=== PATIENT | male | born 1960 | race Caucasian/White ===

== ENCOUNTER 2019-01-06 15:19 | Emergency (ER) | payer MEDICAID ==
[~2019-01-06] VITALS: Ht 203.2 cm; Wt 104.5 kg
[2019-01-06 15:40] VITALS: BP 114/76
[2019-01-06 16:17] LABS: BASOPHILS # (AUTO) 0.1 X10'3 (0-0.2); BASOPHILS % (AUTO) 1.1 % (0-1); EOSINOPHILS # (AUTO) 0.1 X10'3 (0-0.9); EOSINOPHILS % (AUTO) 0.9 % (0-6); HEMATOCRIT 47.5 % (42.0-52.0); HEMOGLOBIN 16.6 g/dl (14.0-17.9); LYMPHOCYTES # (AUTO) 1.6 X10'3 (1.1-4.8); LYMPHOCYTES % (AUTO) 20.1 % (21-51); MEAN CORPUSCULAR HEMOGLOBIN 34.8 PG (27.0-31.0); MEAN CORPUSCULAR HGB CONC 34.9 g/dL (33.0-36.5); MEAN CORPUSCULAR VOLUME 99.5 FL (78-98); MEAN PLATELET VOLUME 8.5 FL (7.4-10.4); MONOCYTES # (AUTO) 0.8 X10'3 (0-0.9); MONOCYTES % (AUTO) 9.5 % (2-12); NEUTROPHILS # (AUTO) 5.6 X10'3 (1.8-7.7); NEUTROPHILS % (AUTO) 68.4 % (42-75); PLATELET COUNT 255 X10'3 (140-440); RED BLOOD COUNT 4.78 X10'6 (4.70-6.10); RED CELL DISTRIBUTION WIDTH 12.9 % (11.5-14.5); WHITE BLOOD COUNT 8.2 X10'3 (4.5-11.0)
[2019-01-06 16:27] LABS: ALANINE AMINOTRANSFERASE 122 U/L (12-78); ALBUMIN 4.3 G/DL (3.4-5.0); ALKALINE PHOSPHATASE 72 IU/L (46-116); ANION GAP 7 (8-16); ASPARTATE AMINO TRANSFERASE 61 U/L (10-37); BILIRUBIN,TOTAL 3.7 MG/DL (0.1-1.0); BLOOD UREA NITROGEN 26 MG/DL (7-18); BUN/CREATININE RATIO 15.2 (5.4-32.0); CALCIUM 9.9 MG/DL (8.5-10.1); CHLORIDE 105 MMOL/L (99-107); CREATININE 1.71 MG/DL (0.60-1.10); GLUCOSE 82 MG/DL (70-104); POTASSIUM 3.8 MMOL/L (3.5-5.1); SODIUM 144 MMOL/L (135-145); TOTAL CARBON DIOXIDE 31.7 MMOL/L (24-32); eGFR 41 ML/MIN
[2019-01-06] MEDS ORDERED: PERM60CR4 TOP (17:32)
[2019-01-06] MEDS ORDERED: MECL12.584 PO (17:32)
[2019-01-06] MEDS ORDERED: METH4TAB3 PO (17:32)
[2019-01-06 18:12] LABS: ALBUMIN/GLOBULIN RATIO 1.2 (1.1-1.5); ETHANOL < 0.010 GM/DL (0.0-0.010); TOTAL PROTEIN 7.9 G/DL (6.4-8.2)
== END 2019-01-06 18:07 | disposition home or self-care (01) ==
LOC: ER 15:20
DX: R42 Dizziness and giddiness (principal); F10.99 Alcohol use, unspecified with unspecified alcohol-induced disorder; Z59.0 Homelessness; Z79.899 Other long term (current) drug therapy; Y90.9 Presence of alcohol in blood, level not specified
CPT/HCPCS: 36415; 80053; 80320; 84484; 85025; 93005; 99284

== ENCOUNTER 2019-02-17 08:27 | Emergency (ER) | payer MEDICAID ==
[~2019-02-17] VITALS: Ht 203.2 cm; Wt 280.0 kg
[~2019-02-17 08:27] MED LIST: MECL-183 PO; METH4TAB3 PO; PERM60CR4 TOP
[2019-02-17 08:31] VITALS: BP 115/60
[2019-02-17] MEDS ORDERED: PERM60CR19 TP (08:42)
[2019-02-17] MEDS ORDERED: PERM60CR4 TOP (08:42)
== END 2019-02-17 09:03 | disposition home or self-care (01) ==
LOC: ER 08:28
DX: B85.2 Pediculosis, unspecified (principal); Z59.0 Homelessness; Z88.0 Allergy status to penicillin
CPT/HCPCS: 99283

== ENCOUNTER 2020-02-13 15:48 | Emergency (ER) | payer MEDICAID ==
[~2020-02-13] VITALS: Ht 203.2 cm; Wt 127.3 kg
[~2020-02-13 15:48] MED LIST changes: -MECL-183 PO; +MECL-226 PO
[2020-02-13 15:55] VITALS: BP 171/109
== END 2020-02-13 16:25 | disposition home or self-care (01) ==
LOC: ER 15:49
DX: Z02.89 Encounter for other administrative examinations (principal); Z72.89 Other problems related to lifestyle; Z59.0 Homelessness; Z88.0 Allergy status to penicillin; Z79.899 Other long term (current) drug therapy
CPT/HCPCS: 99283

== ENCOUNTER 2021-08-04 19:22 | Emergency (ER) | payer MEDICAID ==
[~2021-08-04] VITALS: Ht 203.2 cm; Wt 127.3 kg
[2021-08-04] MEDS ORDERED: TETanus/Pertussis (Acell)/Diphther VAC/PF (Tdap-Adult) 0.5ml syringe IMVAC ONE (21:00)
[2021-08-04] MEDS ORDERED: sulfamethoxazole/trimethoprim DS (800/160mg) tablet PO ONE (21:00)
[2021-08-04] MEDS ORDERED: SULF1TAB49 PO ×3 (21:04→21:34)
[2021-08-04 21:52] VITALS: BP 132/99
[2021-08-05] MEDS ORDERED: SULF1TAB49 PO (09:59)
== END 2021-08-04 21:55 | disposition home or self-care (01) ==
LOC: ER 19:23
DX: L03.012 Cellulitis of left finger (principal); M79.645 Pain in left finger(s); Z20.3 Contact with and (suspected) exposure to rabies; Z72.89 Other problems related to lifestyle; Z59.00 Homelessness unspecified; Z88.0 Allergy status to penicillin; Z79.2 Long term (current) use of antibiotics; Z79.899 Other long term (current) drug therapy
CPT/HCPCS: 73140; 90471; 90715; 99284

== ENCOUNTER 2021-08-05 09:35 | Emergency (ER) | payer MEDICAID ==
[~2021-08-05] VITALS: Ht 203.2 cm; Wt 127.3 kg
[~2021-08-05 09:35] MED LIST changes: +SULF1TAB49 PO
[2021-08-05 09:54] VITALS: BP 102/61
[2021-08-05] MEDS ORDERED: SULF1TAB49 PO (09:59)
== END 2021-08-05 10:19 | disposition home or self-care (01) ==
LOC: ER 09:35
DX: L03.012 Cellulitis of left finger (principal); M79.645 Pain in left finger(s); Z72.89 Other problems related to lifestyle; Z59.00 Homelessness unspecified; Z88.0 Allergy status to penicillin; Z79.2 Long term (current) use of antibiotics; Z79.899 Other long term (current) drug therapy
CPT/HCPCS: 99283

== ENCOUNTER 2021-08-06 10:23 | Emergency (ER) | payer MEDICAID ==
[~2021-08-06] VITALS: Ht 205.7 cm; Wt 127.3 kg
[2021-08-06 10:46] VITALS: BP 134/96
[2021-08-06] MEDS ORDERED: mupirocin 2% ointment 22GM TP ONE (11:35)
[2021-08-06] MEDS ORDERED: acetaminophen 325mg tablet PO ONE (11:35)
[2021-08-06] MEDS ORDERED: ceFAZolin 1gm IM kit IM ONE (11:35)
== END 2021-08-06 12:12 | disposition home or self-care (01) ==
LOC: ER 10:24
DX: S61.215D Laceration without foreign body of left ring finger without damage to nail, subsequent encounter (principal); Z88.0 Allergy status to penicillin; Z59.00 Homelessness unspecified; X58.XXXD Exposure to other specified factors, subsequent encounter; Z79.899 Other long term (current) drug therapy
CPT/HCPCS: 12001; 96372; 99283; J0690; A6258; A6449

== ENCOUNTER 2021-12-25 09:00 | Emergency (ER) | payer MEDICAID ==
[~2021-12-25] VITALS: Ht 203.2 cm; Wt 127.3 kg
[2021-12-25 10:06] VITALS: BP 105/77
[2021-12-25] MEDS ORDERED: loperamide 2mg capsule PO ONE (13:55)
[2021-12-25] MEDS ORDERED: LOPE2TAB25 PO (15:07)
== END 2021-12-25 15:27 | disposition home or self-care (01) ==
LOC: ER 09:01
DX: R19.7 Diarrhea, unspecified (principal); Z88.0 Allergy status to penicillin; Z56.0 Unemployment, unspecified
CPT/HCPCS: 99282

== ENCOUNTER 2021-12-27 14:47 | Emergency (ER) | payer MEDICAID ==
[~2021-12-27] VITALS: Ht 203.2 cm; Wt 129.6 kg
[~2021-12-27 14:47] MED LIST changes: +LOPE2TAB25 PO
[2021-12-27] MEDS ORDERED: BACI28OI9 TP (15:52)
[2021-12-27 15:58] VITALS: BP 129/84
== END 2021-12-27 16:00 | disposition home or self-care (01) ==
LOC: ER 14:48
DX: M79.675 Pain in left toe(s) (principal); Z88.0 Allergy status to penicillin; Z59.00 Homelessness unspecified
CPT/HCPCS: 99282

== ENCOUNTER 2022-01-23 16:47 | Emergency (ER) | payer MEDICAID ==
[~2022-01-23] VITALS: Ht 203.2 cm; Wt 84.1 kg
[~2022-01-23 16:47] MED LIST changes: +BACI28OI9 TP
[2022-01-23 17:12] VITALS: BP 148/105
== END 2022-01-23 18:43 | disposition home or self-care (01) ==
LOC: ER 16:48
DX: U07.1 COVID-19 (principal); Z72.89 Other problems related to lifestyle; Z59.00 Homelessness unspecified; Z88.0 Allergy status to penicillin; Z79.899 Other long term (current) drug therapy
CPT/HCPCS: 87502; 87503; 87635; 99283; C9803

== ENCOUNTER 2022-10-04 05:25 | Emergency (ER) | payer MEDICAID ==
[~2022-10-04] VITALS: Ht 203.2 cm; Wt 72.0 kg
[2022-10-04 05:33] VITALS: TEMP 98
[2022-10-04 06:00] LABS: BILIRUBIN,URINE NEGATIVE (Neg); CLARITY,URINE CLEAR (Clear); COLOR,URINE YELLOW (Yellow); GLUCOSE, URINE NEGATIVE (Neg); KETONES,URINE NEGATIVE (Neg); LEUKOCYTE ESTERASE ,URINE NEGATIVE (Neg); NITRITES, URINE NEGATIVE (Neg); OCCULT BLOOD,URINE MODERATE (Neg); PROTEIN,URINE NEGATIVE (Neg); UROBILINOGEN,URINE 0.2 E.U/dL (0.2-1.0)
[2022-10-04 06:01] LABS: UA COLLECTION TYPE CLN CATCH MIDSTREAM
[2022-10-04 06:05] LABS: WBC,URINE NONE SEEN /HPF (0-4)
[2022-10-04 06:06] LABS: BACTERIA,URINE NONE SEEN /HPF (Neg); MUCUS STRANDS NONE SEEN /LPF (Neg); SQUAMOUS EPITHELIAL CELL,UR NONE SEEN /LPF (FEW)
[2022-10-04 07:05] LABS: BASOPHILS # (AUTO) 0.1 X10'3 (0-0.2); BASOPHILS % (AUTO) 0.9 % (0-1); EOSINOPHILS # (AUTO) 0.1 X10'3 (0-0.9); EOSINOPHILS % (AUTO) 0.9 % (0-6); HEMATOCRIT 49.2 % (42.0-52.0); HEMOGLOBIN 16.7 g/dl (14.0-17.9); LYMPHOCYTES # (AUTO) 1.6 X10'3 (1.1-4.8); LYMPHOCYTES % (AUTO) 26.2 % (21-51); MEAN CORPUSCULAR HEMOGLOBIN 32.9 PG (27.0-31.0); MEAN CORPUSCULAR VOLUME 96.8 FL (78-98); MEAN PLATELET VOLUME 8.1 FL (7.4-10.4); MONOCYTES # (AUTO) 0.6 X10'3 (0-0.9); MONOCYTES % (AUTO) 8.9 % (2-12); NEUTROPHILS # (AUTO) 3.9 X10'3 (1.8-7.7); NEUTROPHILS % (AUTO) 63.1 % (42-75); PLATELET COUNT 261 X10'3 (140-440); RED BLOOD COUNT 5.08 X10'6 (4.70-6.10); RED CELL DISTRIBUTION WIDTH 13.1 % (11.5-14.5); WHITE BLOOD COUNT 6.2 X10'3 (4.5-11.0)
[2022-10-04 07:28] LABS: ALANINE AMINOTRANSFERASE 157 U/L (12-78); ALBUMIN 4.2 G/DL (3.4-5.0); ALBUMIN/GLOBULIN RATIO 1.1 (1.1-1.5); ALKALINE PHOSPHATASE 66 IU/L (46-116); ANION GAP 13 (8-16); ASPARTATE AMINO TRANSFERASE 89 U/L (10-37); BLOOD UREA NITROGEN 15 MG/DL (7-18); BUN/CREATININE RATIO 16.7 (10.0-20.0); CALCIUM 9.1 MG/DL (8.5-10.1); CHLORIDE 108 MMOL/L (99-107); GLUCOSE 97 MG/DL (70-104); LIPASE 101 U/L (73-393); POTASSIUM 3.4 MMOL/L (3.5-5.1); SODIUM 145 MMOL/L (135-145); TOTAL CARBON DIOXIDE 23.7 MMOL/L (24-32); TOTAL PROTEIN 8.1 G/DL (6.4-8.2); eCRCL 86 ML/MIN; eGFR 85 ML/MIN
[2022-10-04] MEDS ORDERED: ciprofloxacin 250mg tablet PO ONE (09:05)
[2022-10-04] MEDS ORDERED: LidoCAINE 2% Topical Jelly 11mL syringe TOP ONE (09:10)
[2022-10-04] MEDS ORDERED: CIPR-260 PO (09:42)
[2022-10-04 09:48] VITALS: BP 163/112; PULSE 66; RESP 14; O2SAT 98
== END 2022-10-04 09:57 | disposition home or self-care (01) ==
LOC: ER 05:26
DX: R33.9 Retention of urine, unspecified (principal); R10.9 Unspecified abdominal pain; Z72.89 Other problems related to lifestyle; Z59.00 Homelessness unspecified; Z79.899 Other long term (current) drug therapy
CPT/HCPCS: 36415; 74176; 80053; 81001; 83690; 85025; 99284; A4314; A4358

== ENCOUNTER 2022-10-07 07:13 | Emergency (ER) | payer MEDICAID ==
[~2022-10-07] VITALS: Ht 203.2 cm; Wt 68.0 kg
[~2022-10-07 07:13] MED LIST changes: -BACI28OI9 TP; +CIPR-260 PO; -LOPE2TAB25 PO; -MECL-226 PO; -METH4TAB3 PO; -PERM60CR4 TOP; -SULF1TAB49 PO
[2022-10-07 07:18] VITALS: BP 129/45; PULSE 100; RESP 16; TEMP 98.9; O2SAT 97
== END 2022-10-07 07:46 | disposition home or self-care (01) ==
LOC: ER 07:15
DX: G47.00 Insomnia, unspecified (principal); T36.8X5A Adverse effect of other systemic antibiotics, initial encounter; Z88.0 Allergy status to penicillin; Z79.2 Long term (current) use of antibiotics; Y92.89 Other specified places as the place of occurrence of the external cause
CPT/HCPCS: 99281

== ENCOUNTER 2022-10-09 10:45 | Emergency (ER) | payer MEDICAID ==
[~2022-10-09] VITALS: Ht 203.2 cm; Wt 61.0 kg
[2022-10-09 10:45] VITALS: BP 134/99; PULSE 71; TEMP 97.8; O2SAT 98
[2022-10-09] MEDS ORDERED: ketorolac trometh inj. 60 MG/2 ML VIAL IM ONE (12:20)
[2022-10-09] MEDS ORDERED: CYCL-1 PO (12:22)
[2022-10-09] MEDS ORDERED: NAPR-56 PO (12:22)
[2022-10-09 12:29] VITALS: RESP 18
== END 2022-10-09 12:35 | disposition home or self-care (01) ==
LOC: ER 10:45
DX: S39.012A Strain of muscle, fascia and tendon of lower back, initial encounter (principal); Z88.0 Allergy status to penicillin; Z79.2 Long term (current) use of antibiotics; X50.9XXA Other and unspecified overexertion or strenuous movements or postures, initial encounter; Y93.89 Activity, other specified; Y92.89 Other specified places as the place of occurrence of the external cause; Y99.8 Other external cause status
CPT/HCPCS: 96372; 99283; J1885

== ENCOUNTER 2022-10-09 19:29 | Emergency (ER) | payer MEDICAID ==
[~2022-10-09] VITALS: Ht 203.2 cm; Wt 81.8 kg
[~2022-10-09 19:29] MED LIST changes: +CYCL-1 PO; +NAPR-56 PO
[2022-10-09 19:39] VITALS: TEMP 98
[2022-10-09] MEDS ORDERED: ketorolac trometh inj. 60 MG/2 ML VIAL IM ONE (21:45)
[2022-10-09 22:15] VITALS: BP 127/96; PULSE 58; RESP 14; O2SAT 98
== END 2022-10-09 22:20 | disposition home or self-care (01) ==
LOC: ER 19:30
DX: S39.012D Strain of muscle, fascia and tendon of lower back, subsequent encounter (principal); F17.200 Nicotine dependence, unspecified, uncomplicated; Z72.89 Other problems related to lifestyle; Z59.00 Homelessness unspecified; Z79.2 Long term (current) use of antibiotics; Z79.899 Other long term (current) drug therapy; Z88.0 Allergy status to penicillin; X58.XXXD Exposure to other specified factors, subsequent encounter
CPT/HCPCS: 96372; 99283; J1885

== ENCOUNTER 2022-11-10 07:49 | Emergency (ER) | payer MEDICAID ==
[~2022-11-10] VITALS: Ht 203.2 cm; Wt 127.3 kg
[~2022-11-10 07:49] MED LIST changes: -NAPR-56 PO
--- NOTE | 2022-11-10 08:07 | NUR ---
PT PRESENTS WITH DIARRHEA ON LEGS. PT GIVEN CHANGE OF CLOTHES AND WASHING IN LOBBY RESTROOM.
[2022-11-10 08:17] VITALS: BP 134/91; PULSE 72; RESP 18; TEMP 96.7; O2SAT 97
[2022-11-10] MEDS ORDERED: LOPE-144 PO (09:25)
== END 2022-11-10 10:04 | disposition home or self-care (01) ==
LOC: ER 07:50
DX: R19.7 Diarrhea, unspecified (principal); Z88.0 Allergy status to penicillin; Z79.899 Other long term (current) drug therapy
CPT/HCPCS: 99282

== ENCOUNTER 2023-04-25 07:12 | Emergency (ER) | payer MEDICAID ==
[~2023-04-25] VITALS: Ht 193 cm; Wt 88.7 kg
[~2023-04-25 07:12] MED LIST changes: +LOPE-144 PO
[2023-04-25 07:18] VITALS: BP 159/106; PULSE 80; RESP 18; TEMP 97.8; O2SAT 98
== END 2023-04-25 17:33 | disposition left against medical advice (07) ==
LOC: ER 07:12
DX: N32.81 Overactive bladder (principal); Z53.21 Procedure and treatment not carried out due to patient leaving prior to being seen by health care provider
CPT/HCPCS: 99281

== ENCOUNTER 2023-08-03 06:49 | Emergency (ER) | payer MEDICAID ==
[~2023-08-03] VITALS: Ht 203.2 cm; Wt 83.1 kg
[2023-08-03 07:36] LABS: BASOPHILS % (AUTO) 0.8 % (0-1); EOSINOPHILS # (AUTO) 0.1 X10'3 (0-0.9); EOSINOPHILS % (AUTO) 1.9 % (0-6); HEMATOCRIT 44.7 % (42.0-52.0); HEMOGLOBIN 14.9 g/dl (14.0-17.9); LYMPHOCYTES # (AUTO) 1.4 X10'3 (1.1-4.8); LYMPHOCYTES % (AUTO) 27.5 % (21-51); MEAN CORPUSCULAR HGB CONC 33.2 g/dL (33.0-36.5); MEAN CORPUSCULAR VOLUME 96.3 FL (78-98); MEAN PLATELET VOLUME 8.2 FL (7.4-10.4); MONOCYTES # (AUTO) 0.4 X10'3 (0-0.9); MONOCYTES % (AUTO) 7.8 % (2-12); NEUTROPHILS # (AUTO) 3.2 X10'3 (1.8-7.7); PLATELET COUNT 236 X10'3 (140-440); RED BLOOD COUNT 4.65 X10'6 (4.70-6.10); RED CELL DISTRIBUTION WIDTH 13.7 % (11.5-14.5); WHITE BLOOD COUNT 5.2 X10'3 (4.5-11.0)
[2023-08-03 07:56] LABS: ALANINE AMINOTRANSFERASE 115 U/L (12-78); ALBUMIN 3.7 G/DL (3.4-5.0); ALBUMIN/GLOBULIN RATIO 1.1 (1.1-1.5); ALKALINE PHOSPHATASE 58 IU/L (46-116); ANION GAP 10 (8-16); ASPARTATE AMINO TRANSFERASE 54 U/L (10-37); BILIRUBIN,TOTAL 2.5 MG/DL (0.1-1.0); BLOOD UREA NITROGEN 17 MG/DL (7-18); BUN/CREATININE RATIO 20.7 (10.0-20.0); CALCIUM 8.6 MG/DL (8.5-10.1); CHLORIDE 107 MMOL/L (99-107); CREATININE 0.82 MG/DL (0.60-1.10); GLUCOSE 91 MG/DL (70-104); LIPASE 39 U/L (16-77); POTASSIUM 3.4 MMOL/L (3.5-5.1); SODIUM 142 MMOL/L (135-145); TOTAL PROTEIN 7.2 G/DL (6.4-8.2); eCRCL 107 ML/MIN; eGFR > 90 ML/MIN
[2023-08-03 10:33] LABS: BILIRUBIN,URINE SMALL (Neg); CLARITY,URINE SLIGHTLY CLOUDY (Clear); COLOR,URINE YELLOW (Yellow); GLUCOSE, URINE 100 mg/dl (Neg); KETONES,URINE TRACE mg/dl (Neg); LEUKOCYTE ESTERASE ,URINE NEGATIVE (Neg); NITRITES, URINE NEGATIVE (Neg); OCCULT BLOOD,URINE NEGATIVE (Neg); PROTEIN,URINE NEGATIVE (Neg)
[2023-08-03 10:37] LABS: UA COLLECTION TYPE NON-SPECIFIED
[2023-08-03 10:51] LABS: MUCUS STRANDS MANY /LPF (Neg); SQUAMOUS EPITHELIAL CELL,UR FEW /LPF (FEW)
[2023-08-03 10:52] LABS: BACTERIA,URINE FEW /HPF (Neg); CAL OXALATE CRYSTALS 2+ /HPF (NEGATIVE); RBC,URINE 0-2 /HPF (0-2); SPERM FEW /HPF (NEGATIVE); WBC,URINE 0-4 /HPF (0-4)
[2023-08-03 10:54] VITALS: TEMP 98
[2023-08-03 11:39] VITALS: BP 163/108; PULSE 55; RESP 16; O2SAT 98
== END 2023-08-03 11:42 | disposition home or self-care (01) ==
LOC: ER 06:49
DX: R10.84 Generalized abdominal pain (principal); R19.7 Diarrhea, unspecified; F17.210 Nicotine dependence, cigarettes, uncomplicated; Z88.0 Allergy status to penicillin; Z79.2 Long term (current) use of antibiotics; Z79.899 Other long term (current) drug therapy; Z59.00 Homelessness unspecified
CPT/HCPCS: 36415; 80053; 81001; 83690; 85025; 99283; 99285

== ENCOUNTER 2023-09-25 13:03 | Emergency (ER) | payer MEDICAID ==
[~2023-09-25] VITALS: Ht 203.2 cm; Wt 70.5 kg
[2023-09-25] MEDS ORDERED: DIPH-186 PO (14:29)
[2023-09-25 14:46] VITALS: BP 104/84; PULSE 62; RESP 14; TEMP 98.8; O2SAT 98
== END 2023-09-25 14:48 | disposition home or self-care (01) ==
LOC: ER 13:03
DX: R19.7 Diarrhea, unspecified (principal); Z88.0 Allergy status to penicillin; Z79.2 Long term (current) use of antibiotics; Z79.899 Other long term (current) drug therapy
CPT/HCPCS: 99284

== ENCOUNTER 2023-12-17 00:09 | Emergency (ER) | payer MEDICAID ==
[~2023-12-17] VITALS: Ht 195.6 cm; Wt 127.3 kg
[~2023-12-17 00:09] MED LIST changes: +DIPH-186 PO
[2023-12-17 00:26] VITALS: BP 142/104; PULSE 91; RESP 16; TEMP 98; O2SAT 95
== END 2023-12-17 02:34 | disposition left against medical advice (07) ==
LOC: ER 00:10
DX: H57.13 Ocular pain, bilateral (principal); Z53.21 Procedure and treatment not carried out due to patient leaving prior to being seen by health care provider

== ENCOUNTER 2024-01-30 11:00 | Emergency (ER) | payer MEDICAID ==
[~2024-01-30] VITALS: Ht 203.2 cm; Wt 127.3 kg
[2024-01-30] MEDS ORDERED: ACET325T58 PO (11:23)
[2024-01-30] MEDS ORDERED: IBUP-1984 PO (11:23)
[2024-01-30] MEDS: acetaminophen 325mg tablet PO ONE (11:29)
[2024-01-30 11:30] VITALS: BP 118/68; PULSE 98; RESP 16; TEMP 98.9; O2SAT 99
== END 2024-01-30 11:31 | disposition home or self-care (01) ==
LOC: ER 11:01
DX: J06.9 Acute upper respiratory infection, unspecified (principal); Z88.0 Allergy status to penicillin; Z79.2 Long term (current) use of antibiotics; Z79.899 Other long term (current) drug therapy
CPT/HCPCS: 99282

== ENCOUNTER 2024-04-29 21:34 | Inpatient (IN) | payer MEDICAID ==
[~2024-04-29] VITALS: Ht 205.7 cm; Wt 89.3 kg
[2024-04-29 22:02] LABS: BASOPHILS # (AUTO) 0.1 X10'3 (0-0.2); BASOPHILS % (AUTO) 0.8 % (0-1); EOSINOPHILS # (AUTO) 0.2 X10'3 (0-0.9); EOSINOPHILS % (AUTO) 1.2 % (0-6); HEMATOCRIT 40.4 % (42.0-52.0); HEMOGLOBIN 13.4 g/dl (14.0-17.9); LYMPHOCYTES % (AUTO) 13.9 % (21-51); MEAN CORPUSCULAR HEMOGLOBIN 30.9 PG (27.0-31.0); MEAN CORPUSCULAR HGB CONC 33.1 g/dL (33.0-36.5); MEAN CORPUSCULAR VOLUME 93.5 FL (78-98); MEAN PLATELET VOLUME 7.4 FL (7.4-10.4); MONOCYTES # (AUTO) 1.5 X10'3 (0-0.9); MONOCYTES % (AUTO) 10.2 % (2-12); NEUTROPHILS # (AUTO) 10.8 X10'3 (1.8-7.7); NEUTROPHILS % (AUTO) 73.9 % (42-75); PLATELET COUNT 378 X10'3 (140-440); RED BLOOD COUNT 4.32 X10'6 (4.70-6.10); RED CELL DISTRIBUTION WIDTH 13.5 % (11.5-14.5); WHITE BLOOD COUNT 14.7 X10'3 (4.5-11.0)
[2024-04-29 22:17] LABS: ALBUMIN 2.6 G/DL (3.4-5.0); ANION GAP 12 (8-16); BLOOD UREA NITROGEN 16 MG/DL (7-18); BUN/CREATININE RATIO 19.5 (10.0-20.0); CALCIUM 8.3 MG/DL (8.5-10.1); CHLORIDE 103 MMOL/L (99-107); CREATININE 0.82 MG/DL (0.60-1.10); GLUCOSE 106 MG/DL (70-104); POTASSIUM 3.6 MMOL/L (3.5-5.1); SODIUM 139 MMOL/L (135-145); eCRCL 113 ML/MIN; eGFR > 90 ML/MIN
[2024-04-29] MEDS ORDERED: iohexol 300mg/ml 100ml inj. ONE (23:03)
[2024-04-29] MEDS: ondansetron 4mg rapidly disintigrating tab PO ONE (23:48)
[2024-04-29] MEDS: CefTRIAXone/D5W-Rocephin 1gm 50 ML IV ONE (23:50)
[2024-04-29] MEDS: oxyCODONE/APAP 10/325mg tablet PO ONE (23:50)
[2024-04-29] MEDS ORDERED: NO HOME MEDS (23:55)
[2024-04-30] MEDS ORDERED: magnesium Cl slow-release 64mg tablet PO PRN (00:30)
[2024-04-30] MEDS ORDERED: mag hydrox/Alum hydrox/simeth 30ml oral suspension PO PRN (00:30)
[2024-04-30] MEDS ORDERED: magnesium sulf-water 2g/50mL 50 ML IV PRN (00:30)
[2024-04-30] MEDS ORDERED: potassium Cl 40MEQ/1/2NS 520ml 520 ML IV PRN (00:30)
[2024-04-30] MEDS ORDERED: potassium Cl 20 mEq SR tablet PO PRN ×2 (00:30)
[2024-04-30] MEDS ORDERED: ondansetron/PF 4mg/2ml inj IV PRN (00:30)
[2024-04-30] MEDS ORDERED: acetaminophen 325mg tablet PO PRN (00:30)
[2024-04-30] MEDS ORDERED: ketorolac trometh 15mg/ml vial 15 MG/ML ML IV PRN (00:30)
[2024-04-30] MEDS ORDERED: magnesium sulf-water 4G/100mL 100 ML IV PRN (00:30)
[2024-04-30 01:59] LABS: HIV ANTIBODY 1&2 RAPID NON-REACTIVE (Neg)
[2024-04-30] MEDS ORDERED: clindamycin 300mg/D5W 50mL 50 ML IV SCH ×2 (02:00)
[2024-04-30] MEDS: clindamycin 300mg/D5W 50mL 50 ML IV SCH (02:13)
[2024-04-30 02:30] LABS: BILIRUBIN,URINE SMALL (Neg); CLARITY,URINE CLEAR (Clear); COLOR,URINE YELLOW (Yellow); GLUCOSE, URINE NEGATIVE (Neg); KETONES,URINE NEGATIVE (Neg); LEUKOCYTE ESTERASE ,URINE NEGATIVE (Neg); NITRITES, URINE NEGATIVE (Neg); OCCULT BLOOD,URINE NEGATIVE (Neg); PH,URINE 5.5 (4.8-8.0); PROTEIN,URINE NEGATIVE (Neg)
[2024-04-30 02:35] LABS: UA COLLECTION TYPE CLN CATCH MIDSTREAM
[2024-04-30 02:38] LABS: HEMOGLOBIN A1C 5.1 % (4.5-6.2)
[2024-04-30 02:50] LABS: URINE AMPHETAMINE SCREEN POSITIVE (Neg); URINE BARBITUATE SCREEN NEGATIVE (Neg); URINE BENZODIAZEPINES SCREEN NEGATIVE (Neg); URINE CANNABINOID SCREEN NEGATIVE (Neg); URINE COCAINE SCREEN NEGATIVE (Neg); URINE METHADONE SCREEN NEGATIVE (Neg); URINE OPIATE SCREEN NEGATIVE (Neg); URINE PHENCYCLIDINE SCREEN NEGATIVE (Neg)
[2024-04-30 03:39] LABS: MAGNESIUM 1.9 MG/DL (1.5-2.4); POTASSIUM 3.5 MMOL/L (3.5-5.1)
[2024-04-30] MEDS ORDERED: VANCOMYCIN 1,500MG inj. 1,500 MG in normal saline 500ml IV soln 300 ML IV SCH (06:15)
[2024-04-30 07:17] VITALS: BP 141/95; PULSE 74; RESP 18; TEMP 98.9; O2SAT 95
[2024-04-30] MEDS ORDERED: docusate sod 100mg capsule PO SCH (08:00)
[2024-04-30] MEDS: K and/or MAG REPLACEMENT MC SCH (08:00)
[2024-04-30] MEDS: VANCOMYCIN 2GM/400ML H20 (PEG) 400 ML IV ONE (09:14)
[2024-04-30] MEDS: multivitamins, therapeutics tablet PO SCH (09:16)
[2024-04-30] MEDS: CefTRIAXone/D5W-Rocephin 1gm 50 ML IV SCH (09:16)
[2024-04-30] MEDS: thiamine 100mg/ml 2ml inj. IV SCH (09:16)
[2024-04-30] MEDS: heparin, porcine 5000 units/ml vial SQ SCH (09:29)
[2024-04-30 10:00] VITALS: BP 126/77; RESP 20; TEMP 98.7; O2SAT 96
[2024-04-30 11:55] VITALS: RESP 18; O2SAT 100
[2024-04-30 12:05] VITALS: O2SAT 100
[2024-04-30] MEDS: folic acid 1mg/0.2ml inj IV SCH (14:14)
[2024-04-30 18:00] VITALS: BP 126/86; PULSE 66; RESP 14; TEMP 97.7; O2SAT 98
[2024-04-30 22:00] VITALS: BP 129/89; PULSE 79; RESP 19; TEMP 99; O2SAT 99
[2024-04-30] MEDS: VANCOMYCIN/WATER FOR INJ (PEG) 1.25GM/250 ML IVPB IV SCH (22:17)
[2024-05-01 06:00] VITALS: BP 131/80; PULSE 83; RESP 16; TEMP 97.8; O2SAT 97
[2024-05-01 06:30] LABS: BASOPHILS # (AUTO) 0.1 X10'3 (0-0.2); BASOPHILS % (AUTO) 1.2 % (0-1); EOSINOPHILS # (AUTO) 0.3 X10'3 (0-0.9); HEMATOCRIT 40.1 % (42.0-52.0); HEMOGLOBIN 13.4 g/dl (14.0-17.9); LYMPHOCYTES # (AUTO) 1.5 X10'3 (1.1-4.8); LYMPHOCYTES % (AUTO) 13.1 % (21-51); MEAN CORPUSCULAR HEMOGLOBIN 31.4 PG (27.0-31.0); MEAN CORPUSCULAR HGB CONC 33.3 g/dL (33.0-36.5); MEAN CORPUSCULAR VOLUME 94.2 FL (78-98); MEAN PLATELET VOLUME 9.2 FL (7.4-10.4); MONOCYTES # (AUTO) 1.1 X10'3 (0-0.9); MONOCYTES % (AUTO) 9.3 % (2-12); NEUTROPHILS # (AUTO) 8.5 X10'3 (1.8-7.7); NEUTROPHILS % (AUTO) 73.4 % (42-75); PLATELET COUNT 368 X10'3 (140-440); RED BLOOD COUNT 4.26 X10'6 (4.70-6.10); RED CELL DISTRIBUTION WIDTH 13.9 % (11.5-14.5); WHITE BLOOD COUNT 11.5 X10'3 (4.5-11.0)
[2024-05-01 07:13] LABS: ALANINE AMINOTRANSFERASE 59 U/L (12-78); ALBUMIN 2.3 G/DL (3.4-5.0); ALBUMIN/GLOBULIN RATIO 0.5 (1.1-1.5); ALKALINE PHOSPHATASE 66 IU/L (46-116); ANION GAP 10 (8-16); ASPARTATE AMINO TRANSFERASE 29 U/L (10-37); BILIRUBIN,TOTAL 1.1 MG/DL (0.1-1.0); BLOOD UREA NITROGEN 7 MG/DL (7-18); BUN/CREATININE RATIO 10.3 (10.0-20.0); CALCIUM 8.4 MG/DL (8.5-10.1); CHLORIDE 107 MMOL/L (99-107); CHOL/HDL RATIO 5.1 (0.00-4.99); CHOLESTEROL 123 MG/DL (0-200); CREATININE 0.68 MG/DL (0.60-1.10); GLUCOSE 89 MG/DL (70-104); HDL CHOLESTEROL 24 MG/DL (35-60); LDL CHOLESTEROL 82 MG/DL (50-100); MAGNESIUM 2.1 MG/DL (1.5-2.4); POTASSIUM 3.9 MMOL/L (3.5-5.1); SODIUM 141 MMOL/L (135-145); TOTAL CARBON DIOXIDE 24.1 MMOL/L (24-32); TOTAL PROTEIN 6.9 G/DL (6.4-8.2); TRIGLYCERIDES 79 MG/DL (20-135); eCRCL 137 ML/MIN; eGFR > 90 ML/MIN
[2024-05-01 10:00] VITALS: BP 129/89; PULSE 97; RESP 16; TEMP 97.9; O2SAT 97
[2024-05-01 14:44] VITALS: RESP 18; O2SAT 97
[2024-05-01] MEDS: VANCOMYCIN LEVEL IV ONE (19:36)
[2024-05-01 22:00] VITALS: BP 138/83; PULSE 63; RESP 16; TEMP 98.3; O2SAT 99
[2024-05-02] MEDS ORDERED: LORazepam 1 MG tablet PO PRN (01:55)
[2024-05-02 05:35] LABS: BASOPHILS # (AUTO) 0.1 X10'3 (0-0.2); BASOPHILS % (AUTO) 1.2 % (0-1); EOSINOPHILS # (AUTO) 0.3 X10'3 (0-0.9); EOSINOPHILS % (AUTO) 4.2 % (0-6); HEMATOCRIT 38.5 % (42.0-52.0); LYMPHOCYTES # (AUTO) 1.5 X10'3 (1.1-4.8); LYMPHOCYTES % (AUTO) 20.6 % (21-51); MEAN CORPUSCULAR HEMOGLOBIN 31.9 PG (27.0-31.0); MEAN CORPUSCULAR HGB CONC 33.8 g/dL (33.0-36.5); MEAN CORPUSCULAR VOLUME 94.4 FL (78-98); MONOCYTES # (AUTO) 0.8 X10'3 (0-0.9); MONOCYTES % (AUTO) 11.2 % (2-12); NEUTROPHILS # (AUTO) 4.5 X10'3 (1.8-7.7); NEUTROPHILS % (AUTO) 62.8 % (42-75); PLATELET COUNT 459 X10'3 (140-440); RED BLOOD COUNT 4.08 X10'6 (4.70-6.10); RED CELL DISTRIBUTION WIDTH 13.5 % (11.5-14.5); WHITE BLOOD COUNT 7.2 X10'3 (4.5-11.0)
[2024-05-02 06:00] VITALS: BP 157/108; PULSE 54; RESP 16; TEMP 98.5; O2SAT 94
[2024-05-02 06:05] LABS: ALANINE AMINOTRANSFERASE 54 U/L (12-78); ALBUMIN 2.3 G/DL (3.4-5.0); ALBUMIN/GLOBULIN RATIO 0.5 (1.1-1.5); ALKALINE PHOSPHATASE 62 IU/L (46-116); ANION GAP 7 (8-16); ASPARTATE AMINO TRANSFERASE 34 U/L (10-37); BILIRUBIN,TOTAL 0.7 MG/DL (0.1-1.0); BLOOD UREA NITROGEN 9 MG/DL (7-18); BUN/CREATININE RATIO 13.6 (10.0-20.0); CALCIUM 8.4 MG/DL (8.5-10.1); CHLORIDE 107 MMOL/L (99-107); CREATININE 0.66 MG/DL (0.60-1.10); GLUCOSE 86 MG/DL (70-104); MAGNESIUM 2.1 MG/DL (1.5-2.4); POTASSIUM 3.9 MMOL/L (3.5-5.1); SODIUM 141 MMOL/L (135-145); TOTAL CARBON DIOXIDE 27.3 MMOL/L (24-32); TOTAL PROTEIN 6.9 G/DL (6.4-8.2); eCRCL 141 ML/MIN; eGFR > 90 ML/MIN
[2024-05-02] MEDS: magnesium hydroxide 30ml (MOM) UD suspension PO PRN (10:19)
[2024-05-02 13:52] LABS: INR 1.1 INR; PROTHROMBIN TIME 11.6 SECONDS (9.0-12.0)
[2024-05-02 16:27] VITALS: BP_SYST 156; BP_SYST 159; BP_DIAS 114; BP_DIAS 96; PULSE 62; RESP 16; TEMP 98; O2SAT 100
[2024-05-02 17:55] VITALS: RESP 16; O2SAT 100
[2024-05-02 18:00] VITALS: BP 159/114; PULSE 59; RESP 18; TEMP 98; O2SAT 99
[2024-05-02] MEDS ORDERED: LIDOcaine 1% 30ml preserv. free vial ONE (18:36)
[2024-05-02] MEDS ORDERED: bacitracin 15gm ointment TP ONE (18:37)
[2024-05-02] MEDS ORDERED: BUPIVAcaine 2.5mg/ml inj 50ml vial (contains preservative) ONE (18:37)
[2024-05-02] MEDS ORDERED: fentaNYL /PF 50mcg/ml 5ml ampule ONE (18:49)
[2024-05-02] MEDS ORDERED: midazolam 1 mg/ML 2ml injection ONE (18:49)
[2024-05-02] MEDS ORDERED: morphine 2 MG/ML inj. syringe IV PRN (18:50)
[2024-05-02] MEDS ORDERED: HYDROmorphone/PF 0.2 MG/ML SYRINGE IV PRN ×2 (18:50)
[2024-05-02] MEDS ORDERED: ondansetron/PF 4mg/2ml inj IV PRN (18:50)
[2024-05-02] MEDS ORDERED: labetalol 20mg/4ml (5mg/ml) syringe IV PRN (18:50)
[2024-05-02] MEDS ORDERED: proCHLORperazine 10 MG/2 ml inj IV PRN (18:50)
[2024-05-02] MEDS ORDERED: morphine 4 MG/ML inj SYRINge IV PRN (18:50)
[2024-05-02] MEDS ORDERED: hydrALAZINE 20mg/ml inj. IV PRN (18:50)
[2024-05-02] MEDS ORDERED: meperidine/PF 25mg/ml syringe IV PRN (18:50)
[2024-05-02] MEDS ORDERED: acetaminophen 1,000mg/100ml IV 100 ML IV PRN (18:50)
[2024-05-02 20:00] VITALS: RESP 14; O2SAT 99
[2024-05-02] MEDS: VANCOMYCIN/WATER FOR INJ (PEG) 1.5GM/300 ML IVPB IV SCH (21:53)
[2024-05-02 22:00] VITALS: BP 128/84; PULSE 64; RESP 20; TEMP 98.3; O2SAT 98
[2024-05-03] VITALS (19 sets, daily range): BP systolic 118–156; BP diastolic 75–104; PULSE 48–81; RESP 14–78; TEMP 97.7–98.4; O2SAT 93–100
[2024-05-03 05:45] LABS: BASOPHILS # (AUTO) 0.1 X10'3 (0-0.2); EOSINOPHILS # (AUTO) 0.3 X10'3 (0-0.9); EOSINOPHILS % (AUTO) 3.7 % (0-6); HEMATOCRIT 40.7 % (42.0-52.0); HEMOGLOBIN 13.7 g/dl (14.0-17.9); LYMPHOCYTES # (AUTO) 1.5 X10'3 (1.1-4.8); LYMPHOCYTES % (AUTO) 19.8 % (21-51); MEAN CORPUSCULAR HEMOGLOBIN 31.4 PG (27.0-31.0); MEAN CORPUSCULAR HGB CONC 33.6 g/dL (33.0-36.5); MEAN CORPUSCULAR VOLUME 93.4 FL (78-98); MEAN PLATELET VOLUME 8.3 FL (7.4-10.4); MONOCYTES # (AUTO) 0.6 X10'3 (0-0.9); MONOCYTES % (AUTO) 8.5 % (2-12); PLATELET COUNT 410 X10'3 (140-440); RED BLOOD COUNT 4.36 X10'6 (4.70-6.10); RED CELL DISTRIBUTION WIDTH 13.6 % (11.5-14.5); WHITE BLOOD COUNT 7.4 X10'3 (4.5-11.0)
[2024-05-03 06:14] LABS: ALANINE AMINOTRANSFERASE 68 U/L (12-78); ALBUMIN 2.4 G/DL (3.4-5.0); ALBUMIN/GLOBULIN RATIO 0.5 (1.1-1.5); ALKALINE PHOSPHATASE 64 IU/L (46-116); ANION GAP 9 (8-16); ASPARTATE AMINO TRANSFERASE 38 U/L (10-37); BILIRUBIN,TOTAL 0.5 MG/DL (0.1-1.0); BLOOD UREA NITROGEN 13 MG/DL (7-18); BUN/CREATININE RATIO 19.1 (10.0-20.0); CALCIUM 8.6 MG/DL (8.5-10.1); CHLORIDE 107 MMOL/L (99-107); CREATININE 0.68 MG/DL (0.60-1.10); GLUCOSE 92 MG/DL (70-104); SODIUM 141 MMOL/L (135-145); TOTAL CARBON DIOXIDE 24.9 MMOL/L (24-32); TOTAL PROTEIN 7.1 G/DL (6.4-8.2); eCRCL 137 ML/MIN; eGFR > 90 ML/MIN
[2024-05-03] MEDS ORDERED: hydrALAZINE 20mg/ml inj. IV PRN (07:50)
[2024-05-03] MEDS ORDERED: morphine 4 MG/ML inj SYRINge IV PRN (07:50)
[2024-05-03] MEDS ORDERED: meperidine/PF 25mg/ml syringe IV PRN (07:50)
[2024-05-03] MEDS ORDERED: proCHLORperazine 10 MG/2 ml inj IV PRN (07:50)
[2024-05-03] MEDS ORDERED: morphine 2 MG/ML inj. syringe IV PRN (07:50)
[2024-05-03] MEDS ORDERED: HYDROmorphone/PF 0.2 MG/ML SYRINGE IV PRN ×2 (07:50)
[2024-05-03] MEDS ORDERED: ondansetron/PF 4mg/2ml inj IV PRN (07:50)
[2024-05-03] MEDS: ringers solution, lacted 1,000 ML IV SCH ×2 (07:50→12:02)
[2024-05-03] MEDS ORDERED: acetaminophen 1,000mg/100ml IV 100 ML IV PRN (07:50)
[2024-05-03] MEDS ORDERED: labetalol 20mg/4ml (5mg/ml) syringe IV PRN (07:50)
[2024-05-03] MEDS ORDERED: midazolam 1 mg/ML 2ml injection ONE (07:57)
[2024-05-03] MEDS ORDERED: sevoflurane 250ml liquid IH ONE (08:02)
[2024-05-03] MEDS ORDERED: fentaNYL /PF 50mcg/ml 5ml ampule ONE (08:08)
[2024-05-03] MEDS ORDERED: LIDOcaine 2% (20mg/ml) 5ml vial ONE (08:59)
[2024-05-03] MEDS ORDERED: dexamethasone sod phosphate 4mg/ml inj. ONE (08:59)
[2024-05-03] MEDS ORDERED: ondansetron/PF 4mg/2ml inj ONE (08:59)
[2024-05-03] MEDS ORDERED: rocuronium 10mg/ml inj IV ONE (08:59)
[2024-05-03] MEDS ORDERED: propofol inj 20 ML IV ONE (08:59)
[2024-05-03] MEDS ORDERED: HYDROcodone/acetaminophen 10/325mg tab PO PRN (09:10)
[2024-05-04] VITALS (13 sets, daily range): BP systolic 80–139; BP diastolic 48–104; PULSE 49–67; RESP 12–20; TEMP 97.6–98.3; O2SAT 95–99
[2024-05-04] MEDS ORDERED: LORazepam 1 MG tablet PO PRN (01:55)
[2024-05-04 05:01] LABS: BASOPHILS # (AUTO) 0.1 X10'3 (0-0.2); BASOPHILS % (AUTO) 1.1 % (0-1); EOSINOPHILS # (AUTO) 0.1 X10'3 (0-0.9); HEMATOCRIT 33.7 % (42.0-52.0); HEMOGLOBIN 11.2 g/dl (14.0-17.9); LYMPHOCYTES # (AUTO) 2.7 X10'3 (1.1-4.8); LYMPHOCYTES % (AUTO) 23.6 % (21-51); MEAN CORPUSCULAR HEMOGLOBIN 30.9 PG (27.0-31.0); MEAN CORPUSCULAR HGB CONC 33.1 g/dL (33.0-36.5); MEAN CORPUSCULAR VOLUME 93.5 FL (78-98); MONOCYTES # (AUTO) 0.9 X10'3 (0-0.9); MONOCYTES % (AUTO) 7.9 % (2-12); NEUTROPHILS # (AUTO) 7.5 X10'3 (1.8-7.7); NEUTROPHILS % (AUTO) 66.4 % (42-75); PLATELET COUNT 423 X10'3 (140-440); RED BLOOD COUNT 3.61 X10'6 (4.70-6.10); RED CELL DISTRIBUTION WIDTH 13.5 % (11.5-14.5); WHITE BLOOD COUNT 11.4 X10'3 (4.5-11.0)
[2024-05-04] MEDS: normal saline 1000ml 1,000 ML IV ONE ×2 (05:17→05:20)
[2024-05-04] MEDS: gelatin sponge, absorbable (Gelfoam 12-7MM) sponge TP ONE (05:30)
[2024-05-04] MEDS: gelatin sponge, absorbable (Gelfoam-100 compressed) sponge TP ONE (05:30)
[2024-05-04] MEDS: VANCOMYCIN LEVEL IV ONE (07:30)
[2024-05-04 08:51] LABS: ALANINE AMINOTRANSFERASE 55 U/L (12-78); ALBUMIN/GLOBULIN RATIO 0.5 (1.1-1.5); ALKALINE PHOSPHATASE 52 IU/L (46-116); ANION GAP 9 (8-16); ASPARTATE AMINO TRANSFERASE 36 U/L (10-37); BILIRUBIN,TOTAL 0.5 MG/DL (0.1-1.0); BLOOD UREA NITROGEN 15 MG/DL (7-18); BUN/CREATININE RATIO 21.1 (10.0-20.0); CALCIUM 7.9 MG/DL (8.5-10.1); CHLORIDE 110 MMOL/L (99-107); CREATININE 0.71 MG/DL (0.60-1.10); GLUCOSE 96 MG/DL (70-104); POTASSIUM 3.8 MMOL/L (3.5-5.1); SODIUM 141 MMOL/L (135-145); TOTAL CARBON DIOXIDE 22.4 MMOL/L (24-32); TOTAL PROTEIN 5.7 G/DL (6.4-8.2); VANCOMYCIN,TROUGH 12.6 ug/mL (10.0-20.0); eCRCL 131 ML/MIN; eGFR > 90 ML/MIN
[2024-05-04] MEDS: JUVEN Shake w/Arg/Glut/Ca2+Bmb (Juven 19.3gm) pkt 240ml PO SCH (12:54)
[2024-05-05 06:00] VITALS: BP 140/91; PULSE 81; RESP 20; TEMP 98.2; O2SAT 98
[2024-05-05] MEDS: VANCOMYCIN LEVEL IV ONE (08:00)
[2024-05-05 08:18] LABS: ALANINE AMINOTRANSFERASE 64 U/L (12-78); ALBUMIN 2.3 G/DL (3.4-5.0); ALBUMIN/GLOBULIN RATIO 0.6 (1.1-1.5); ALKALINE PHOSPHATASE 57 IU/L (46-116); ANION GAP 8 (8-16); ASPARTATE AMINO TRANSFERASE 43 U/L (10-37); BILIRUBIN,TOTAL 0.4 MG/DL (0.1-1.0); BLOOD UREA NITROGEN 12 MG/DL (7-18); CALCIUM 8.2 MG/DL (8.5-10.1); CHLORIDE 109 MMOL/L (99-107); GLUCOSE 89 MG/DL (70-104); POTASSIUM 3.8 MMOL/L (3.5-5.1); SODIUM 139 MMOL/L (135-145); TOTAL CARBON DIOXIDE 22.3 MMOL/L (24-32); TOTAL PROTEIN 6.4 G/DL (6.4-8.2); eCRCL 155 ML/MIN; eGFR > 90 ML/MIN
[2024-05-05 08:20] LABS: VANCOMYCIN,TROUGH 14.2 ug/mL (10.0-20.0)
[2024-05-05 08:24] LABS: BASOPHILS # (AUTO) 0.1 X10'3 (0-0.2); BASOPHILS % (AUTO) 1.4 % (0-1); EOSINOPHILS # (AUTO) 0.2 X10'3 (0-0.9); EOSINOPHILS % (AUTO) 1.9 % (0-6); HEMATOCRIT 29.9 % (42.0-52.0); HEMOGLOBIN 10.2 g/dl (14.0-17.9); LYMPHOCYTES % (AUTO) 23.2 % (21-51); MEAN CORPUSCULAR HEMOGLOBIN 32.2 PG (27.0-31.0); MEAN CORPUSCULAR VOLUME 94.7 FL (78-98); MEAN PLATELET VOLUME 7.7 FL (7.4-10.4); MONOCYTES # (AUTO) 0.6 X10'3 (0-0.9); MONOCYTES % (AUTO) 6.7 % (2-12); NEUTROPHILS # (AUTO) 5.8 X10'3 (1.8-7.7); NEUTROPHILS % (AUTO) 66.8 % (42-75); PLATELET COUNT 429 X10'3 (140-440); RED BLOOD COUNT 3.15 X10'6 (4.70-6.10); RED CELL DISTRIBUTION WIDTH 13.9 % (11.5-14.5); WHITE BLOOD COUNT 8.8 X10'3 (4.5-11.0)
[2024-05-05] MEDS ORDERED: ACET-1008 PO (14:36)
[2024-05-05] MEDS ORDERED: IBUP-1985 PO (14:38)
[2024-05-05] MEDS ORDERED: OMEP20CA16 PO (14:38)
[2024-05-05] MEDS ORDERED: CLIN-232 PO (14:38)
[2024-05-05] MEDS ORDERED: VANCOMYCIN 1.75GM/WATER FOR INJ (PEG) 350 ML IVPB IV SCH (20:00)
[2024-05-07] MEDS ORDERED: VANCOMYCIN LEVEL IV ONE (07:30)
== END 2024-05-05 16:09 | disposition home or self-care (01) | DRG 383 ==
LOC: ER 21:36 → ED HOLD 04-30 00:07 → SUR 3N 04-30 07:18
PROVIDERS: ADMIT Internal Medicine Pulmonary Disease; ATTEND Internal Medicine
PROC: BW241ZZ Computerized Tomography (CT Scan) of Chest and Abdomen using Low Osmolar Contrast (ICD-10-PCS; 2024-04-30)
PROC: 0JB70ZZ Excision of Back Subcutaneous Tissue and Fascia, Open Approach (ICD-10-PCS; principal; 2024-05-03 08:07)
DX: L02.212 Cutaneous abscess of back [any part, except buttock and flank] (principal); E83.51 Hypocalcemia; L02.93 Carbuncle, unspecified; E88.09 Other disorders of plasma-protein metabolism, not elsewhere classified; G25.81 Restless legs syndrome; D72.829 Elevated white blood cell count, unspecified; D64.9 Anemia, unspecified; F17.210 Nicotine dependence, cigarettes, uncomplicated; R73.9 Hyperglycemia, unspecified; Z59.02 Unsheltered homelessness
CPT/HCPCS: 36415; 71260; 80048; 80053; 80061; 80202; 80305; 81003; 82948; 83036; 83605; 83735; 84100; 84132; 84145; 84443; 85025; 85610; 85651; 86703; 86885; 86900; 86901; 87040; 87070; 87075; 87077; 87102; 87186; 93005; 94799; 96365; 96366; 97161; 97530; 99291; A4618; A4649; A6196; A6223; A6253; A6258; A6446; A6449; A7000; G0378; J0696; J1100; J1644; J2003; J2250; J2405; J2704; J2710; J3010; J3372; J3411; J3490; J7030; J7040; J7120; Q9967

== ENCOUNTER 2024-05-13 22:47 | Inpatient (IN) | payer MEDICAID ==
[~2024-05-13] VITALS: Ht 203.2 cm; Wt 95.5 kg
[~2024-05-13 22:47] MED LIST changes: +ACET-1008 PO; -CIPR-260 PO; +CLIN-232 PO; -CYCL-1 PO; -DIPH-186 PO; +IBUP-1985 PO; -LOPE-144 PO; +OMEP20CA16 PO
[2024-05-13] MEDS ORDERED: VANCOMYCIN 1.75GM/WATER FOR INJ (PEG) 350 ML IVPB IV ONE (23:35)
[2024-05-13 23:38] LABS: BASOPHILS # (AUTO) 0.1 X10'3 (0-0.2); BASOPHILS % (AUTO) 0.8 % (0-1); EOSINOPHILS # (AUTO) 0.1 X10'3 (0-0.9); EOSINOPHILS % (AUTO) 1.6 % (0-6); HEMATOCRIT 31.5 % (42.0-52.0); HEMOGLOBIN 10.8 g/dl (14.0-17.9); LYMPHOCYTES # (AUTO) 1.9 X10'3 (1.1-4.8); LYMPHOCYTES % (AUTO) 25.5 % (21-51); MEAN CORPUSCULAR HEMOGLOBIN 32.6 PG (27.0-31.0); MEAN CORPUSCULAR HGB CONC 34.5 g/dL (33.0-36.5); MEAN CORPUSCULAR VOLUME 94.5 FL (78-98); MEAN PLATELET VOLUME 7.5 FL (7.4-10.4); MONOCYTES # (AUTO) 0.8 X10'3 (0-0.9); MONOCYTES % (AUTO) 10.6 % (2-12); NEUTROPHILS # (AUTO) 4.7 X10'3 (1.8-7.7); NEUTROPHILS % (AUTO) 61.5 % (42-75); PLATELET COUNT 481 X10'3 (140-440); RED BLOOD COUNT 3.33 X10'6 (4.70-6.10); RED CELL DISTRIBUTION WIDTH 15.5 % (11.5-14.5); WHITE BLOOD COUNT 7.6 X10'3 (4.5-11.0)
[2024-05-13 23:46] LABS: ANION GAP 8 (8-16); BLOOD UREA NITROGEN 17 MG/DL (7-18); BUN/CREATININE RATIO 19.3 (10.0-20.0); CALCIUM 8.5 MG/DL (8.5-10.1); CHLORIDE 107 MMOL/L (99-107); CREATININE 0.88 MG/DL (0.60-1.10); GLUCOSE 96 MG/DL (70-104); POTASSIUM 4.1 MMOL/L (3.5-5.1); SODIUM 144 MMOL/L (135-145); TOTAL CARBON DIOXIDE 29.1 MMOL/L (24-32); eCRCL 113 ML/MIN; eGFR 87 ML/MIN
[2024-05-14] VITALS (8 sets, daily range): BP systolic 125–146; BP diastolic 77–94; PULSE 57–70; RESP 16–19; TEMP 97.6–98.5; O2SAT 95–100
[2024-05-14] MEDS ORDERED: VANCOMYCIN/WATER FOR INJ (PEG) 1.25GM/250 ML IVPB IV ONE (00:45)
[2024-05-14] MEDS: VANCOmycin 1250MG/NS 250ml Bag 250 ML IV ONE (00:45)
[2024-05-14] MEDS ORDERED: magnesium hydroxide 30ml (MOM) UD suspension PO PRN (00:55)
[2024-05-14] MEDS ORDERED: HYDROcodone/acetaminophen 10/325mg tab PO PRN (00:55)
[2024-05-14] MEDS ORDERED: mag hydrox/Alum hydrox/simeth 30ml oral suspension PO PRN (00:55)
[2024-05-14] MEDS ORDERED: bisacodyl 10mg suppository rectal RC PRN (00:55)
[2024-05-14] MEDS ORDERED: magnesium Cl slow-release 64mg tablet PO PRN (00:55)
[2024-05-14] MEDS ORDERED: morphine 2 MG/ML inj. syringe IV PRN ×2 (00:55)
[2024-05-14] MEDS ORDERED: potassium Cl 20 mEq SR tablet PO PRN ×2 (00:55)
[2024-05-14] MEDS ORDERED: potassium Cl 40MEQ/1/2NS 520ml 520 ML IV PRN (00:55)
[2024-05-14] MEDS ORDERED: HYDROmorphone inj. 0.5 MG/0.5 ML DISP.SYRIN IV PRN (00:55)
[2024-05-14] MEDS ORDERED: HYDROcodone/acetaminophen 5mg/325mg tablet PO PRN (00:55)
[2024-05-14] MEDS ORDERED: magnesium sulf-water 4G/100mL 100 ML IV PRN (00:55)
[2024-05-14] MEDS ORDERED: ondansetron/PF 4mg/2ml inj IV PRN (00:55)
[2024-05-14] MEDS ORDERED: metoclopramide 5 mg/ml inj IV PRN (00:55)
[2024-05-14] MEDS ORDERED: acetaminophen 325mg tablet PO PRN ×2 (00:55)
[2024-05-14] MEDS ORDERED: magnesium sulf-water 2g/50mL 50 ML IV PRN (00:55)
[2024-05-14 01:31] LABS: APTT 28 SECONDS (22-32); PROTHROMBIN TIME 10.4 SECONDS (9.0-12.0)
[2024-05-14 01:51] LABS: FERRITIN 83 NG/ML (26-388); PRO BRAIN NATRIURETIC PEPTIDE 94 PG/ML (0-125)
[2024-05-14 02:00] LABS: % IRON SATURATION 7 % (11-46); IRON 26 UG/DL (53-167); TOTAL IRON BINDING CAPACITY 350 UG/DL (259-388)
[2024-05-14] MEDS ORDERED: NO HOME MEDS (02:55)
[2024-05-14 03:12] LABS: BILIRUBIN,URINE NEGATIVE (Neg); CLARITY,URINE CLEAR (Clear); COLOR,URINE YELLOW (Yellow); GLUCOSE, URINE NEGATIVE (Neg); KETONES,URINE NEGATIVE (Neg); LEUKOCYTE ESTERASE ,URINE NEGATIVE (Neg); NITRITES, URINE NEGATIVE (Neg); OCCULT BLOOD,URINE NEGATIVE (Neg); PH,URINE 6.5 (4.8-8.0); PROTEIN,URINE NEGATIVE (Neg); UROBILINOGEN,URINE 0.2 E.U/dL (0.2-1.0)
[2024-05-14 03:18] LABS: UA COLLECTION TYPE CLN CATCH MIDSTREAM
[2024-05-14] MEDS: sodium chloride 0.45% 1,000 ML IV SCH (03:40)
[2024-05-14] MEDS: LidoCAINE 2% Topical Jelly 11mL syringe (UROJET) TOP ONE (07:30)
[2024-05-14] MEDS: K and/or MAG REPLACEMENT MC SCH (08:00)
[2024-05-14] MEDS: docusate sod 100mg capsule PO SCH (08:09)
[2024-05-14] MEDS: enoxaparin 40mg/0.4ml syringe SUBCUT SCH (08:10)
[2024-05-14] MEDS: VANCOmycin 1250MG/NS 250ml Bag 250 ML IV SCH (14:16)
[2024-05-14 15:01] LABS: URINE AMPHETAMINE SCREEN NEGATIVE (Neg); URINE BARBITUATE SCREEN NEGATIVE (Neg); URINE BENZODIAZEPINES SCREEN NEGATIVE (Neg); URINE CANNABINOID SCREEN NEGATIVE (Neg); URINE COCAINE SCREEN NEGATIVE (Neg); URINE METHADONE SCREEN NEGATIVE (Neg); URINE OPIATE SCREEN NEGATIVE (Neg); URINE PHENCYCLIDINE SCREEN NEGATIVE (Neg)
[2024-05-15 05:21] LABS: BASOPHILS % (AUTO) 0.9 % (0-1); EOSINOPHILS # (AUTO) 0.2 X10'3 (0-0.9); EOSINOPHILS % (AUTO) 3.2 % (0-6); HEMATOCRIT 32.1 % (42.0-52.0); HEMOGLOBIN 10.9 g/dl (14.0-17.9); LYMPHOCYTES # (AUTO) 1.5 X10'3 (1.1-4.8); LYMPHOCYTES % (AUTO) 29.7 % (21-51); MEAN PLATELET VOLUME 7.6 FL (7.4-10.4); MONOCYTES # (AUTO) 0.5 X10'3 (0-0.9); MONOCYTES % (AUTO) 9.9 % (2-12); NEUTROPHILS # (AUTO) 2.9 X10'3 (1.8-7.7); NEUTROPHILS % (AUTO) 56.3 % (42-75); PLATELET COUNT 484 X10'3 (140-440); RED BLOOD COUNT 3.41 X10'6 (4.70-6.10); RED CELL DISTRIBUTION WIDTH 15.1 % (11.5-14.5); WHITE BLOOD COUNT 5.2 X10'3 (4.5-11.0)
[2024-05-15 05:43] LABS: ALANINE AMINOTRANSFERASE 130 U/L (12-78); ALBUMIN 2.9 G/DL (3.4-5.0); ALBUMIN/GLOBULIN RATIO 0.7 (1.1-1.5); ALKALINE PHOSPHATASE 95 IU/L (46-116); ANION GAP 7 (8-16); ASPARTATE AMINO TRANSFERASE 81 U/L (10-37); BLOOD UREA NITROGEN 9 MG/DL (7-18); BUN/CREATININE RATIO 12.5 (10.0-20.0); CALCIUM 8.5 MG/DL (8.5-10.1); CHLORIDE 108 MMOL/L (99-107); CHOL/HDL RATIO 3.4 (0.00-4.99); CHOLESTEROL 161 MG/DL (0-200); CREATININE 0.72 MG/DL (0.60-1.10); GLUCOSE 91 MG/DL (70-104); HDL CHOLESTEROL 47 MG/DL (35-60); LDL CHOLESTEROL 103 MG/DL (50-100); POTASSIUM 3.8 MMOL/L (3.5-5.1); SODIUM 141 MMOL/L (135-145); TOTAL CARBON DIOXIDE 25.6 MMOL/L (24-32); TOTAL PROTEIN 6.9 G/DL (6.4-8.2); TRIGLYCERIDES 66 MG/DL (20-135); eCRCL 138 ML/MIN; eGFR > 90 ML/MIN
[2024-05-15 06:00] VITALS: BP 141/95; PULSE 63; RESP 20; TEMP 97.5; O2SAT 96
[2024-05-15 10:00] VITALS: BP 141/95; PULSE 63; RESP 20; TEMP 97.5; O2SAT 96
[2024-05-15] MEDS: VANCOMYCIN LEVEL IV ONE (12:41)
[2024-05-15 18:00] VITALS: BP 143/96; PULSE 69; RESP 24; TEMP 98.4; O2SAT 98
[2024-05-15 20:00] VITALS: RESP 24; O2SAT 98
[2024-05-15] MEDS: vancomycin/NS 1 GM ADD-VANTAGE 250 ML IV SCH (21:12)
[2024-05-15 22:00] VITALS: BP 154/91; PULSE 66; RESP 14; TEMP 98.3; O2SAT 97
[2024-05-16 05:07] LABS: BASOPHILS # (AUTO) 0.1 X10'3 (0-0.2); BASOPHILS % (AUTO) 1.1 % (0-1); EOSINOPHILS # (AUTO) 0.2 X10'3 (0-0.9); EOSINOPHILS % (AUTO) 2.8 % (0-6); HEMATOCRIT 33.2 % (42.0-52.0); HEMOGLOBIN 11.3 g/dl (14.0-17.9); LYMPHOCYTES # (AUTO) 1.6 X10'3 (1.1-4.8); LYMPHOCYTES % (AUTO) 25.8 % (21-51); MEAN CORPUSCULAR HEMOGLOBIN 31.9 PG (27.0-31.0); MEAN CORPUSCULAR HGB CONC 33.9 g/dL (33.0-36.5); MEAN CORPUSCULAR VOLUME 94.1 FL (78-98); MEAN PLATELET VOLUME 7.7 FL (7.4-10.4); MONOCYTES # (AUTO) 0.5 X10'3 (0-0.9); MONOCYTES % (AUTO) 8.7 % (2-12); NEUTROPHILS # (AUTO) 3.7 X10'3 (1.8-7.7); NEUTROPHILS % (AUTO) 61.6 % (42-75); PLATELET COUNT 465 X10'3 (140-440); RED BLOOD COUNT 3.53 X10'6 (4.70-6.10); RED CELL DISTRIBUTION WIDTH 15.3 % (11.5-14.5); WHITE BLOOD COUNT 6.1 X10'3 (4.5-11.0)
[2024-05-16 05:40] LABS: ALANINE AMINOTRANSFERASE 148 U/L (12-78); ALBUMIN/GLOBULIN RATIO 0.7 (1.1-1.5); ALKALINE PHOSPHATASE 92 IU/L (46-116); ANION GAP 6 (8-16); ASPARTATE AMINO TRANSFERASE 93 U/L (10-37); BILIRUBIN,TOTAL 0.7 MG/DL (0.1-1.0); BLOOD UREA NITROGEN 18 MG/DL (7-18); BUN/CREATININE RATIO 20.2 (10.0-20.0); CALCIUM 8.7 MG/DL (8.5-10.1); CHLORIDE 107 MMOL/L (99-107); CREATININE 0.89 MG/DL (0.60-1.10); GLUCOSE 90 MG/DL (70-104); POTASSIUM 3.9 MMOL/L (3.5-5.1); SODIUM 143 MMOL/L (135-145); TOTAL CARBON DIOXIDE 29.7 MMOL/L (24-32); TOTAL PROTEIN 7.1 G/DL (6.4-8.2); eCRCL 112 ML/MIN; eGFR 86 ML/MIN
[2024-05-16 06:00] VITALS: BP 150/88; PULSE 88; RESP 16; TEMP 98.6; O2SAT 97
[2024-05-16] MEDS ORDERED: LINE600T14 PO (07:40)
[2024-05-16] MEDS ORDERED: LACT1CAP55 PO (07:46)
[2024-05-16 10:00] VITALS: BP 154/98; PULSE 66; RESP 24; TEMP 97.9; O2SAT 100
[2024-05-16] MEDS ORDERED: VANCOMYCIN LEVEL IV ONE (20:30)
== END 2024-05-16 15:45 | disposition home or self-care (01) | DRG 721 ==
LOC: ER 22:48 → ED HOLD 05-14 01:07 → SUR 3N 05-14 03:39
PROVIDERS: ADMIT Internal Medicine Critical Care Medicine; ATTEND Family Medicine
DX: T81.49XA Infection following a procedure, other surgical site, initial encounter (principal); E44.1 Mild protein-calorie malnutrition; Z59.00 Homelessness unspecified; Y83.8 Other surgical procedures as the cause of abnormal reaction of the patient, or of later complication, without mention of misadventure at the time of the procedure; D64.9 Anemia, unspecified; L03.818 Cellulitis of other sites; D75.838 Other thrombocytosis; Y92.89 Other specified places as the place of occurrence of the external cause; Z68.23 Body mass index [BMI] 23.0-23.9, adult; Z88.0 Allergy status to penicillin
CPT/HCPCS: 36415; 80048; 80053; 80061; 80202; 80305; 81003; 82728; 83540; 83550; 83605; 83735; 83880; 84132; 84145; 85025; 85610; 85651; 85730; 86140; 87040; 87070; 87077; 87081; 87186; 93005; 96365; 99285; A6253; A6258; A6449; G0378; J1650; J3370; J3490

== ENCOUNTER 2024-05-28 19:19 | Emergency (ER) | payer MEDICAID ==
[~2024-05-28] VITALS: Ht 203.2 cm; Wt 127.3 kg
[~2024-05-28 19:19] MED LIST changes: -ACET-1008 PO; -CLIN-232 PO; -IBUP-1985 PO; +LACT1CAP55 PO; +LINE600T14 PO; +NO HOME MEDS; -OMEP20CA16 PO
[2024-05-28 19:31] VITALS: TEMP 98
[2024-05-29 02:23] VITALS: BP 142/89; PULSE 82; RESP 14; O2SAT 99
== END 2024-05-29 02:26 | disposition home or self-care (01) ==
LOC: ER 19:21
DX: L02.212 Cutaneous abscess of back [any part, except buttock and flank] (principal); F10.90 Alcohol use, unspecified, uncomplicated; Z88.0 Allergy status to penicillin; Z59.00 Homelessness unspecified; Z79.899 Other long term (current) drug therapy; Y90.9 Presence of alcohol in blood, level not specified
CPT/HCPCS: 99281

== ENCOUNTER 2024-06-05 13:57 | Emergency (ER) | payer MEDICAID ==
[~2024-06-05] VITALS: Ht 203.2 cm; Wt 88.3 kg
[2024-06-05 13:58] VITALS: BP 136/78; PULSE 92; RESP 16; O2SAT 97
--- NOTE | 2024-06-05 14:08 | Physician Documentation ---
History of Present Illness ~ Chief Complaint: Wound Stated Complaint: BACK DRAINING Time Seen by MD: 14:00 Primary Medical Doctor: Hamida Alford Source: patient, RN/ HPI Patient is seen today with complaints of needing dressing change of open wound on his mid upper back. Patient is not a very good historian. Patient states he had the dressing changed recently. Patient is unclear how long he has had the wound for. Patient denies any fevers or chills or chest pain or shortness of b reath or abdominal pain or nausea, vomiting, diarrhea. Patient has no other concern or complaint at this time. Tetanus within 5 years?: Yes Medication Reconciliation Allergies: Coded Allergies: Penicillins (Unverified Allergy, Unknown, causes anuria, 05/13/24) Scheduled L. Rhamnosus GG/Inulin (Culturelle Capsule), 1 CAP PO DAILY Linezolid (Linezolid), 1 TAB PO Q12H Miscellaneous Medications Home Med List (No Home Medications), (Reported) Past Medical History Past Medical History: No Pertinent History Past Surgical History: noncontributory Alcohol Use: Heavy Drug Use: none Lives In: Homeless Review of Systems Constitutional: Denies: chills, fever, weakness Eyes: Denies: pain, blurred vision ENT: Denies: ear pain, nose pain, throat pain, mouth pain Respiratory: Denies: cough, shortness of breath Cardiovascular: Denies: chest pain, palpitations Gastrointestinal: Denies: abdominal pain, nausea, vomiting Genitourinary: Denies: burning, dysuria Male Genitalia: Denies: penile discharge, testicular pain Neurological: Denies: headache, dizziness Musculoskeletal: Denies: pain, swelling Integumentary: Denies: rash, lesions Allergic/Immunologic: Denies: hives, itching Hematologic/Lymphatic: Denies: no symptoms reported Psychiatric: Denies: depression, anxiety Physical Exam Vital Signs: Temperature: 98.1, Source: Oral, Heart Rate: 92, Respiratory Rate: 16, BP: 136/78, Pulse Oximetry: 97, Weight: 88.300 Oxygen Flow Rate: 0 Physical Exam General: Awake and Alert, no acute distress. HEENT: Conjunctiva pink, Sclera clear, Mucus Membranes moist. Neck: Supple without masses and tenderness. Resp: Unlabored. Lungs clear to auscultation bilaterally. Heart: Regular Rate and rhythm, normal S1 and S2 without murmur, rub or gallop. Extremities: No cyanosis,clubbing or edema. Skin: Patient on exam does have large open healing wound of mid upper back that does not appear to be infected at this time. I do not appreciate any surrounding erythema or induration. There is significant amount of purulence on the bandage/ABD pad when removed. The wound measures a proximally 12 cm in diameter. The wound is deep to the subcutaneous fat and there is granulation tissue present. I do not appreciate any exposed muscle or tendon or bone. Progress Results/Orders Results/Orders Vital Signs 06/05/24 13:58 Temp 98.1 Pulse 92 Resp 16 B/P (MAP) 136/78 Pulse Ox 97 O2 Flow Rate 0 Medical Decision Making Findings Patient is seen today with complaints of needing dressing change of open wound on his mid upper back. Patient is not a very good historian. Patient states he had the dressing changed recently. Patient is unclear how long he has had the wound for. Patient denies any fevers or chills or chest pain or shortness of breath or abdominal pain or nausea, vomiting, diarrhea. Patient has no other concern or complaint at this time. Wound dressing was changed and patient will be referred to wound care and instructed to change dressing daily. Patient will return to ED with any worsening, concerning or changing symptoms. Departure Disposition: 01 HOME / SELF CARE / HOMELESS Impression: Primary Impression: Wound Condition: Improved Discharge Instructions: How to Change Your Wound Dressing Additional Instructions: Wound dressing was changed and patient will be referred to wound care and instructed to change dressing daily. Patient will return to ED with any worsening, concerning or changing symptoms. Referrals: NO PRIMARY CARE PROVIDER (PCP) Signature Scribe Signature: No scribe Attestation: No scribe AMILCAR HERRERA PAC June 05, 2024 14:08
[2024-06-05 14:18] VITALS: TEMP 98.1
== END 2024-06-05 14:21 | disposition home or self-care (01) ==
LOC: ER 13:58
DX: S21.202D Unspecified open wound of left back wall of thorax without penetration into thoracic cavity, subsequent encounter (principal); S21.201D Unspecified open wound of right back wall of thorax without penetration into thoracic cavity, subsequent encounter; Z88.0 Allergy status to penicillin; X58.XXXD Exposure to other specified factors, subsequent encounter
CPT/HCPCS: 99281; A6253

== ENCOUNTER → 2024-06-11 | Emergency (ER) | payer MEDICAID ==
[~2024-06-11] VITALS: Ht 203.2 cm; Wt 78.0 kg
[~2024-06-11] MED LIST changes: +DOXY-460 PO
[2024-06-11 18:48] VITALS: BP 145/68; PULSE 73; RESP 15; O2SAT 98
--- NOTE | 2024-06-11 19:58 | Physician Documentation ---
History of Present Illness ~ Chief Complaint: Wound Re-Check Stated Complaint: NEEDS PADS ON BACK CHANGED Time Seen by MD: 19:44 Primary Medical Doctor: Hamida Alford [facility] This is a 64-year-old gentleman who is somewhat poor historian, comes in for a wound recheck. He states that the wound has been changed �three or four days ago�. He does not see an outpatient wound care despite the fact that he has a ability to do so and has been established. He requests wound examination and dressing changes. Denies any fever, chills, denies any pain. Tetanus within 5 years?: Yes Medication Reconciliation Allergies: Coded Allergies: Penicillins (Unverified Allergy, Unknown, causes anuria, 06/11/24) Scheduled L. Rhamnosus GG/Inulin (Culturelle Capsule), 1 CAP PO DAILY Linezolid (Linezolid), 1 TAB PO Q12H Miscellaneous Medications Home Med List (No Home Medications), (Reported) Past Medical History Past Medical History: No Pertinent History Past Surgical History: noncontributory Alcohol Use: Heavy Drug Use: none Lives In: Homeless Review of Systems ROS 10 point review of systems was performed and unless noted above in HPI is negative for acute process/complaint. Physical Exam Vital Signs: Temperature: 98.6, Source: Temporal, Heart Rate: 73, Respiratory Rate: 15, BP: 145/68, Pulse Oximetry: 98, Weight: 78.000 Physical Exam Physical examination: GENERAL: Awake, alert, oriented, GCS 15, no apparent distress, non-toxic appearing, answers questions, follows commands appropriately. HEENT: Atraumatic, normocephalic, pupils equal, extraocular muscles intact Active gross movements, sclerae anicteric, mucus membranes moist, no stridor. NECK: Midline, no JVD CARDIOVASCULAR: Good skin perfusion without evidence of pallor, mottling. PULMONARY: Nonlabored, symmetric chest rise, no audible wheezing, no accessory muscle use, no respiratory distress, speaking in full sentences. GASTROINTESTINAL: Not distended. NEUROLOGIC: Lucid with normal mental status. Normal facial symmetry. Moves all extremities symmetrically and with purpose. No truncal ataxia. Speech is fluid without evidence of dysarthria or aphasia, no focal deficits appreciated. EXTREMITIES: Acute deformities Skin: warm, dry PSYCHIATRIC: Normal affect, normal insight, normal concentration. Focused exam: [] Is approximately 10 cm healing wound on his upper back, granulation tissue present, it is well marginated, no purulence, no bleeding, no surrounding erythema, no fluctuance to be concern of an abscess. Progress Results/Orders Results/Orders Vital Signs 06/11/24 18:48 Temp 98.6 Pulse 73 Resp 15 B/P (MAP) 145/68 Pulse Ox 98 Medical Decision Making Findings Facility Status: ED Holds, RME process The plan was discussed with the patient, who demonstrates clear understanding of the plan and is in agreement with the plan unless otherwise noted in the chart. All questions have been answered, all concerns were addressed unless otherwise documented. I was available throughout their ED stay for frequent reassessment and questions. Differential Diagnoses (considered and possible or likely): [Encounter for wound care, less likely cellulitis, less likely abscess, clinically no evidence of necrotizing fasciitis] ??Differential Diagnoses (considered and unlikely, not requiring evaluation currently): [See above] MDM Data Please see [facility] for the following: Independent Historians and external Records Review. Historian: [Patient] Independent Historians: ?[Record review, most recent visits for wound care was in 06/05/2024 to this ED] Medication Management: [Reviewed medication list] Social History and determinants: [Reviewed] Please see the body of the note for the following: Any independent interpretations of ECG, imaging studies. All vitals signs/haemodynamics, ordered tests were independently reviewed and interpreted by myself. Nursing triage complaint and vitals reviewed, additional nursing notes were reviewed as available and I agree unless otherwise noted or documented in contradiction in the chart Vital Signs: Independently reviewed Labs: Independently interpreted Imaging: Independently interpreted Old Medical Records: Independently reviewed, see HPI for relevant summary and information Pulse Oximetry: [97%] interpreted as [normal on room air] by me Additionally notably showing: [Hemodynamically stable] Tests considered but not ordered include: [Hematologic workup and imaging has been considered but does not appear to be necessary given clinical nature of diagnosis] Social Determinants of Health Impact: Patient was evaluated in [facility] [place] to healthcare due to below par ratio of patient to medical providers. [] Comorbid Conditions Impacting Present Evaluation and Care/Treatment: [Chronic wound] Management Discussions with other Healthcare Providers: [None] Treatment and Disposition Medication Management (Given or considered): [Wound care]. See EMR for details Consideration for Hospitalization/Escalation/Deescalation of Care: Admission for observation has been considered, [however the patient is able to tolerate p.o., their symptoms are controlled, they are able to rely on oral medications, and their chief complaint/diagnosis can be managed on outpatient basis.] ?ED Course:?[No clinical deterioration] ?Shared decision making:?[Patient is hemodynamically stable for discharge home with follow with their primary care provider. [ ] Specific and cautious return precautions provided and discussed with full understanding. Any incidental findings were also discussed and follow up recommendations given. [] All questions answered. Patient/family were able to verbalize back return precautions. Patient/family agree to plan. Copies of imaging and laboratory studies were provided.] Code status:?FULL Please see the full Electronic Medical Record for full details of nursing documentation, medications list, other records of complete past medical history and conditions, vital signs, laboratory studies, and any radiologic study interpretations by radiologists. Portions of this note were completed using Glarity dictation software and as a result there may exist minor errors in spelling. I have reviewed elements of past family and social history and agree as included in note. Departure Disposition: 01 HOME / SELF CARE / HOMELESS Impression: Primary Impression: Encounter for wound care Condition: Improved Discharge Instructions: Wound Care, Adult Education Educated: Patient Educated regarding: diagnosis, treatment, prognosis, need for follow up Signature Scribe Signature: No scribe Attestation: This note accurately reflects clinical decisions, work performed by myself, DO MANISH Hong NICHOLAS M DO June 11, 2024 19:58
[2024-06-11 20:35] VITALS: TEMP 98.6
== END | disposition home or self-care (01) ==
LOC: ER 18:40
DX: S20.409D Unspecified superficial injuries of unspecified back wall of thorax, subsequent encounter (principal); F10.90 Alcohol use, unspecified, uncomplicated; Z88.0 Allergy status to penicillin; Z79.899 Other long term (current) drug therapy; Z59.00 Homelessness unspecified; Y90.9 Presence of alcohol in blood, level not specified; X58.XXXD Exposure to other specified factors, subsequent encounter
CPT/HCPCS: 99281; A6449

== ENCOUNTER 2024-06-16 12:03 | Emergency (ER) | payer MEDICAID ==
[~2024-06-16] VITALS: Ht 203.2 cm; Wt 88.8 kg
[~2024-06-16 12:03] MED LIST changes: -DOXY-460 PO
[2024-06-16 12:12] VITALS: BP 128/84; PULSE 87; RESP 18; TEMP 97.8; O2SAT 98
--- NOTE | 2024-06-16 13:49 | Physician Documentation ---
History of Present Illness ~ Chief Complaint: Wound Stated Complaint: PATCH REPLACEMENT? Time Seen by MD: 13:14 Primary Medical Doctor: Hamida Rodriguez This patient who is a 64-year-old homeless male presents after having ongoing poor healing wound.large phlegmon large phlegmon was incised by Dr. Kemp however patient failed to follow up as directed and has had ongoing problems with the wound. Continues to have some purulent discharge. He has any fevers however states he has had difficulty keeping it clean due to being homeless Day of Onset of Wound: June 16, 2024 Tetanus within 5 years?: Yes Medication Reconciliation Allergies: Coded Allergies: Penicillins (Unverified Allergy, Unknown, causes anuria, 06/11/24) Scheduled Doxycycline Monohydrate (Doxycycline Monohydrate), 1 CAP PO Q12H L. Rhamnosus GG/Inulin (Culturelle Capsule), 1 CAP PO DAILY Linezolid (Linezolid), 1 TAB PO Q12H Miscellaneous Medications Home Med List (No Home Medications), (Reported) Past Medical History Past Medical History: No Pertinent History Past Surgical History: noncontributory Alcohol Use: Heavy Drug Use: none Lives In: Homeless Review of Systems All Other Systems at this time: Reviewed and Negative Physical Exam Vital Signs: Temperature: 97.8, Source: Temporal, Heart Rate: 87, Respiratory Rate: 18, BP: 128/84, Pulse Oximetry: 98, Weight: 88.750 Physical Exam General: Alert, no apparent distress. HEENT: PERRL, EOMI, no injection, moist mucous membranes. Neck: Full range of motion. Phlegmon on the upper torso of the posterior back Respiratory: Lungs clear, no respiratory distress. Neurologic: Oriented x4. Psychiatric: Normal mood and affect. Skin: Normal color, warm and dry. No edema, no ecchymosis. Progress Results/Orders Results/Orders Completed Orders - ANGELITO PAGAN NP Doxycycline 100mg Capsule (Vibramycin 10 (06/16/24 13:51) Medications Received in ER Medications (Trade) Dose Ordered Sig/Gio Route PRN Reason Start Time Stop Time Status Last Admin Dose Admin (VIBRAMYCIN 100mg capsule) 100 mg ONCE STAT PO 06/16/24 13:51 06/16/24 13:52 DC 06/16/24 14:10 100 MG Vital Signs 06/16/24 12:12 Temp 97.8 Pulse 87 Resp 18 B/P (MAP) 128/84 Pulse Ox 98 Medical Decision Making Findings Presents with a poor healing wound however he does not present as being septic. Due to socioeconomic deficiencies, outpatient setting maybe difficult for him to get full treatment however he does not present with any signs that would require inpatient therapy. 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 for MRSA previously Differential Dx:Considerations: Include: Abscess, Cellulitis, Dressing change, Healing wound, Other Departure Disposition: 01 HOME / SELF CARE / HOMELESS Impression: Primary Impression: Wound Additional Impression: Wound cellulitis Condition: Stable Discharge Instructions: How to Change Your Wound Dressing Referrals: NO PRIMARY CARE PROVIDER (PCP) Prescriptions Doxycycline Monohydrate (Doxycycline Monohydrate) 100 Mg Capsule 1 CAP PO Q12H for 10 Days, #20 CAP Prov: ANGELITO PAGAN NP 06/16/24 Education Educated: Patient Educated regarding: diagnosis Signature Scribe Signature: f Attestation: The note accurately reflects work and decisions made by me.Angelito Chatterjee NP 06/16/24 13:54 ANGELITO PAGAN NP June 16, 2024 13:49
[2024-06-16] MEDS ORDERED: DOXY-460 PO (13:54)
[2024-06-16] MEDS: DOXYCYCLINE 100MG CAPSULE PO STA (14:10)
== END 2024-06-16 14:20 | disposition home or self-care (01) ==
LOC: ER 12:04
DX: L03.312 Cellulitis of back [any part except buttock and flank] (principal); R50.9 Fever, unspecified; F10.90 Alcohol use, unspecified, uncomplicated; Z59.00 Homelessness unspecified; Z88.0 Allergy status to penicillin; Z79.899 Other long term (current) drug therapy; Y90.9 Presence of alcohol in blood, level not specified
CPT/HCPCS: 99283; A6253; A6449

== ENCOUNTER 2024-06-20 09:34 | Emergency (ER) | payer MEDICAID ==
[~2024-06-20] VITALS: Ht 203.2 cm; Wt 84.1 kg
[~2024-06-20 09:34] MED LIST changes: +DOXY-460 PO
[2024-06-20 09:35] VITALS: BP 152/102; PULSE 67; RESP 15; O2SAT 97
--- NOTE | 2024-06-20 10:23 | Physician Documentation ---
History of Present Illness ~ Chief Complaint: Wound Re-Check Stated Complaint: "FIX PATCH" Time Seen by MD: 09:49 OK to notify your PCP?: Yes Primary Medical Doctor: Hamida Alford Source: patient Mode of Arrival: POV Exam Limitations: no limitations HPI 64-year-old male who is here to get a new dressing on the wound on his back as he states that the current dressing in his sticking to his T-shirt. No increased pain. No fever, chills. Tetanus within 5 years?: Yes Medication Reconciliation Allergies: Coded Allergies: Penicillins (Unverified Allergy, Unknown, causes anuria, 06/11/24) Scheduled Doxycycline Monohydrate (Doxycycline Monohydrate), 1 CAP PO Q12H L. Rhamnosus GG/Inulin (Culturelle Capsule), 1 CAP PO DAILY Linezolid (Linezolid), 1 TAB PO Q12H Miscellaneous Medications Home Med List (No Home Medications), (Reported) Past Medical History Past Medical History: No Pertinent History Past Surgical History: noncontributory Alcohol Use: Heavy Drug Use: none Lives In: Homeless Review of Systems All Other Systems at this time: Reviewed and Negative Physical Exam Vital Signs: Temperature: 98.2, Source: Temporal, Heart Rate: 67, Respiratory Rate: 15, BP: 152/102, Pulse Oximetry: 97, Weight: 84.090 Physical Exam General Appearance: Alert, WD/WN. NAD. HEENT: NCAT, PERRL, EOMI. Neck: Supple, trachea midline. Cardiovascular: RRR. No m/r/g. Lungs: CTAB. Breathing unlabored Extremities: Normal inspection. No edema. Skin: IN CENTER OF UPPER BACK THERE IS APPROXIMATELY 7CM X 7CM OPEN WOUND, WOUND BED IS BEEFY RED GRANULATION TISSUE, NO SURROUNDING ERYTHEMA, 4X4 GAUZE DRESSING IS SATURATED WITH YELLOW DRAINAGE BUT NOT ACTIVELY DRAINING. NO SURROUNDING INDURATION OR FLUCTUANCE, AREA DOES NOT APPEAR TO BE TTP. Neurological: Alert and oriented x4, normal gait. Psychiatric: Affect congruent with mood. Progress Results/Orders Results/Orders Vital Signs 06/20/24 09:35 Temp 98.2 Pulse 67 Resp 15 B/P (MAP) 152/102 Pulse Ox 97 Medical Decision Making Differential Dx:Considerations: Include: Abscess, Cellulitis, Dressing change, Healing wound, Other Additional Comment NO EVIDENCE OF AN INFECTION THERE IS NO SURROUNDING ERYTHEMA, WOUND BED IS BEEFY RED LOOKING LIKE HEALTHY GRANULATION TISSUE, VITAL SIGNS NORMAL. Departure Time of Disposition: 10:22 Disposition: 01 HOME / SELF CARE / HOMELESS Impression: Primary Impression: Wound Condition: Stable Discharge Instructions: Wound Care, Adult Additional Instructions: YOU REALLY NEED TO BE SEEN AT THE WOUND CARE CLINIC ASSOCIATED WITH THIS [facility] OR ANY WOUND CARE CLINIC FOR THAT MATTER. I SENT A REFERRAL TO THE WOUND CARE CLINIC AFFILIATED WITH [facility] YOU NEED TO CONTACT THEM TO SCHEDULE AN APPOINTMENT FOR FURTHER TREATMENT. Referrals: NO PRIMARY CARE PROVIDER (PCP) [facility] Education Educated: Patient Educated regarding: diagnosis, treatment, need for follow up Signature Scribe Signature: X Attestation: LEATHA GUIDRY June 20, 2024 10:23
[2024-06-20 10:30] VITALS: TEMP 98.2
== END 2024-06-20 10:35 | disposition home or self-care (01) ==
LOC: ER 09:34
DX: S20.409D Unspecified superficial injuries of unspecified back wall of thorax, subsequent encounter (principal); Z88.0 Allergy status to penicillin; Z79.899 Other long term (current) drug therapy; Z59.00 Homelessness unspecified; X58.XXXD Exposure to other specified factors, subsequent encounter
CPT/HCPCS: 99281

== ENCOUNTER 2024-07-26 08:22 | Emergency (ER) | payer MEDICAID ==
[~2024-07-26] VITALS: Ht 203.2 cm; Wt 83.4 kg
[~2024-07-26 08:22] MED LIST changes: -DOXY-460 PO
--- NOTE | 2024-07-26 10:02 | Physician Documentation ---
History of Present Illness ~ Chief Complaint: Abscess Stated Complaint: ABSCESS ON NECK Time Seen by MD: 09:32 OK to notify your PCP?: Yes Primary Medical Doctor: Hamida Alford Source: patient Mode of Arrival: POV Exam Limitations: no limitations HPI 64-year-old male with chief complaint swollen area on his upper back which he states he just noticed when he was at [employer] prior to coming to the ER. Reports some drainage from the area. No pain. Tetanus Within 5 Years: Yes Medication Reconciliation Allergies: Coded Allergies: Penicillins (Unverified Allergy, Unknown, causes anuria, 06/11/24) Scheduled L. Rhamnosus GG/Inulin (Culturelle Capsule), 1 CAP PO DAILY Linezolid (Linezolid), 1 TAB PO Q12H Miscellaneous Medications Home Med List (No Home Medications), (Reported) Past Medical History Past Medical History: No Pertinent History Past Surgical History: noncontributory Alcohol Use: Heavy Drug Use: none Lives In: Homeless Review of Systems All Other Systems at this time: Reviewed and Negative Physical Exam Vital Signs: Temperature: 97.8, Source: Oral, Heart Rate: 72, Respiratory Rate: 18, BP: 134/96, Pulse Oximetry: 98, Weight: 83.400 Physical Exam SKIN: UPPER BACK THERE IS SOFT TISSUE PROTUBERANT MASS ABOUT 3CM X 3CM NO ERYTHEMA, NTTP, OVERLYING CRUST General Appearance: Alert, WD/WN. NAD. HEENT: NCAT, PERRL, EOMI. Neck: Supple, trachea midline. Cardiovascular: RRR. No m/r/g. Lungs: CTAB. Breathing unlabored Extremities: Normal inspection. No edema. Neurological: Alert and oriented x4, normal gait. Psychiatric: Affect congruent with mood. Progress Results/Orders Results/Orders Vital Signs 07/26/24 08:30 Temp 97.8 Pulse 72 Resp 18 B/P (MAP) 134/96 Pulse Ox 98 Medical Decision Making Differential Dx:Considerations: Include: Abscess, Bacteremia, Cellulitis, Erysipelas, Felon, Gas gangrene, Hidrademitis suppurativa, Impetigo, Lymphangitis, Osteromyelitis, Paronychia, Septicemia Departure Time of Disposition: 10:01 Disposition: 01 HOME / SELF CARE / HOMELESS Impression: Primary Impression: Wound Condition: Stable Discharge Instructions: How to Change Your Wound Dressing Additional Instructions: CHANGE DRESSING DAILY IF INCREASING PAIN, RETURN TO ER WOUND IS ALREADY DRAINING NATURALLY Referrals: NO PRIMARY CARE PROVIDER (PCP) Education Educated: Patient Educated regarding: diagnosis, treatment, need for follow up Signature Scribe Signature: X Attestation: LEATHA GUIDRY Jul 26, 2024 10:02
[2024-07-26 10:17] VITALS: BP 138/70; PULSE 68; RESP 16; TEMP 97.8; O2SAT 99
== END 2024-07-26 10:11 | disposition home or self-care (01) ==
LOC: ER 08:23
DX: L02.11 Cutaneous abscess of neck (principal); F10.90 Alcohol use, unspecified, uncomplicated; Z88.0 Allergy status to penicillin; Z79.899 Other long term (current) drug therapy; Z59.00 Homelessness unspecified; Y90.9 Presence of alcohol in blood, level not specified
CPT/HCPCS: 99281; 99282; A6212; A6213